=== PATIENT | female | born 1995 | race Caucasian/White ===

== ENCOUNTER 2018-02-14 09:36 | Inpatient (IN) ==
[2018-02-14] MEDS ORDERED: Sodium Chloride 0.9% 1,000 ML PRIMARY IV ONE (09:48)
[2018-02-14 10:49] LABS: Hematocrit [HCT] 43.5 % (37.0-47.0); Hemoglobin [HGB] 15.2 g/dL (12.0-16.0); MEAN CORPUSCULAR HEMOGLOBIN 29.9 PG (27-31); MEAN CORPUSCULAR HGB CONC 34.9 g/dL (33-37); MEAN CORPUSCULAR VOLUME 85.6 FL (81-99); MEAN PLATELET VOLUME 11.3 FL (7.4-12.2); RED BLOOD COUNT 5.08 10^6/uL (4.20-5.40)
[2018-02-14 11:05] LABS: BILIRUBIN,URINE NEGATIVE (NEG); CLARITY,URINE CLEAR (CLEAR); COLOR,URINE YELLOW (Y); GLUCOSE, URINE (UA) NEGATIVE (NEG); OCCULT BLOOD,URINE NEGATIVE (NEG); PROTEIN,URINE 30 mg/dl (NEG); UROBILINOGEN,URINE 0.2 EU/dL (0.2)
[2018-02-14 11:21] LABS: BACTERIA,URINE RARE; SQUAMOUS EPITHELIAL CELL,UR MODERATE; URINE SAMPLE TYPE CATH SPECIMEN
[2018-02-14 11:36] LABS: BLOOD UREA NITROGEN 8 mg/dL (7-22); BUN/CREATININE RATIO 13.33 (6-20); SERUM ALBUMIN 3.8 g/dL (3.5-4.8); Uric Acid 5.6 mg/dl (2.5-6.2)
[2018-02-14] MEDS ORDERED: CALCIUM CARBONATE 500 MG (TUMS) CHEWABLE TABLET PO PRN (11:51)
[2018-02-14] MEDS ORDERED: ACETAMINOPHEN 325 MG TABLET PO PRN (11:51)
[2018-02-14] MEDS ORDERED: Ondansetron ODT Tab 4 MG TAB PO PRN (11:51)
[2018-02-14] MEDS ORDERED: ONDANSETRON 4 MG/2 ML VIAL IVP PRN (11:51)
[2018-02-14] MEDS ORDERED: LIDOCAINE W/ SODIUM BICARB 0.5 ML SYR SUBD PRN ×2 (11:51→21:43)
[2018-02-14] MEDS ORDERED: BETAMET ACET/BETAMET NA PH 6 MG/1 ML - 5 ML IM SCH (12:00)
[2018-02-14] MEDS ORDERED: Lactated Ringers 1,000 ML PRIMARY IV SCH ×2 (15:00→21:45)
--- NOTE | 2018-02-14 15:55 | DI ---
US OB , Limited,02/14/2018 11:51 AM: Clinical History: Nonreassuring nonstress test. Previous Exam: November 24, 2017 Findings: Multiple grayscale and color Doppler sonographic images are obtained through the pelvis, and demonstr ates a single live intrauterine gestation in vertex presentation. The cervix is long and closed measu ring 5.9 cm in length. Detected Doppler heart tones measured 147 beats per minute. There is normal diaphragmatic motion iden tified. There was flexion seen with gross movement without extension identified. There is normal tone. Amniotic fluid index measured 8.7 cm however, there was a pocket of fluid within the left upper quadr ant measuring 2 x 2 centimeters. Impression: Biophysical profile measuring 7/8 due to limited gross movement.
[2018-02-14] MEDS ORDERED: Magnesium Sulfate 4gm (Premix) 4 GM/100 ML BAG IV ONE (17:47)
[2018-02-14] MEDS ORDERED: CALCIUM GLUCONATE 100 MG/1 ML - 10 ML IVP PRN (17:47)
--- NOTE | 2018-02-14 17:53 | DI ---
US OB , Limited,02/14/2018 3:40 PM: Clinical History: None strip Previous Exam: None at this facility. Findings: Multiple grayscale and color Doppler sonographic images are obtained through the pelvis and demonstra te a single live intrauterine gestation in vertex presentation. Amniotic fluid level is low measuring 7.7 cm. Detected Doppler heart tones measure 150 beats per minute. Evaluation of cord Dopplers reveals some mild reversal of end-diastolic flow. Estimated gestational age was determined by a composite of biparietal diameter, head circumference, a bdominal circumference and femur length yielding an estimated gestational age by ultrasound of 30 wee ks 5 days. This measures one week 5 days behind gestational age by last menstrual period. Estimated weight measured 1494 g (the 2nd percentile) Abdominal circumference measured less than the 2nd percentile. Femur length was at the 3rd percentile and head circumference was at the 4th percentile. Impression: 1. End diastolic reversal of flow on the cord Dopplers. 2. Estimated gestational age falls 12 days behind estimated gestational age by last menstrual period.
[2018-02-14] MEDS ORDERED: Magnesium Sulfate (Premix) 20 GM/500 ML BAG IV SCH (18:00)
--- NOTE | 2018-02-14 18:05 | OB.PROGRES ---
Date of Service: 02/14/18 Time of Service: 17:15 Interval History: Rema is a 22 yo at 32 3/7 weeks by first trimester u/s (9 2/7 weeks) who presented to labor and delivery this morning after calling my office and c/o cramping and low back pain as well as rib pain/pain across her upper abdomen. She denies any spotting, vag bleeding or gushes of fluid. No abnormal vaginal discharge. Baby has been moving around normally. Her has been uncomplicated thus far. Her initial labs were unremarkable. She is Rh negative and received her rhogam at 28 weeks. Her 20 week u/s showed baby to be measuring at the 45th percentile with an PAWEL that was subjectively normal per the radiologist's read. After the pt arrived to labor and delivery, she was noted to be hypertensive with blood pressures in the 150-160s/80s to low 90s diastolic. She had no BOYER, vision changes, or increased swelling. NST showed minimal to moderate variability with rare variables. FFN was negative. Vaginosis panel was + for angelica. U/s showed PAWEL of 8.7, vertex presentation. Pt was observed. Because of the continued intermittent variables, BPP was done, which was 6/8, off for gross movements. EFW was completed this afternoon, which showed baby to be in the 2nd percentile. There was noted to be a reverse in end diastolic flow. Because of these findings, I called and spoke with Dr. Hue Wadsworth in [place] at [facility]. She recommended transfer to [place] for further care. Objective - Cervical Exam Cervical Exam: not checked, but cervix was noted to be thick on u/s earlier. [place]: none noted Heart Rate: 150-155, occasional variable decelerations. Minimal to moderate variability. - Labs CBC and BMP: 02/14/18 10:46 02/14/18 10:46 - Vital Signs Last Taken Vital Signs: Vital Signs - Last Taken Temperature 97.7 F 02/14/18 09:45 Pulse Rate 75 02/14/18 15:00 Respiratory Rate 18 02/14/18 09:45 Blood Pressure 143/82 02/14/18 11:38 Pulse Ox 100 02/14/18 09:45 Assessment and Plan - Patient Problems (1) Elevated blood pressure affecting in third trimester, antepartum Current Visit: Yes Status: Acute Code(s): O16.3 - Unspecified maternal hypertension, third trimester (2) IUGR (intrauterine growth restriction) Current Visit: Yes Status: Acute - Assessment / Plan Additional Assessment/Plan Details: -reverse end diastolic flow noted on u/s. -discussed with Dr. Wadsworth at [facility] in [place]. Will start mag sulfate now ( bolus of 4 gm and then 2 gms/hour). Pt received her first dose of betamethasone at 1442. -GBS pending. -discussed with pt and her family in detail. was out in the field and was contacted and is headed here. Questions were answered--pt is quite emotional at this time.
[2018-02-14] MEDS ORDERED: CLOTRIMAZOLE 21 GM 3-DAY VAG CREAM VAGINAL SCH (21:00)
[2018-02-14] MEDS ORDERED: LIDOCAINE W/ SODIUM BICARB 0.5 ML SYR ONE (21:25)
[2018-02-14] MEDS ORDERED: Sodium Chloride 0.9% vial 10 ML ONE (21:25)
[2018-02-14] MEDS ORDERED: BUPIVACAINE SPINAL 7.5 MG/1 ML - 2 ML IV ONE (21:25)
[2018-02-14] MEDS ORDERED: ePHEDrine Inj 50 MG/ML AMP ONE (21:25)
[2018-02-14] MEDS ORDERED: OXYTOCIN 10 UNIT/1 ML ONE (21:40)
[2018-02-14] MEDS ORDERED: FAMOTIDINE 20 MG/2 ML VIAL IVP ONE (21:43)
[2018-02-14] MEDS ORDERED: LIDOCAINE HCL 2 % 10 ML JELLY URO-JECT TOPICAL PRN (21:43)
[2018-02-14] MEDS ORDERED: CITRIC ACID/SODIUM CITRATE 30 ML CUP PO ONE (21:43)
[2018-02-14] MEDS ORDERED: Clindamycin 900mg (Premix) 900 MG/50 ML BAG IV ONE (21:43)
[2018-02-14] MEDS ORDERED: Lactated Ringers 1,000 ML PRIMARY IV ONE (21:43)
[2018-02-14] MEDS ORDERED: Metoclopramide Inj 10 MG/2 ML VIAL IV ONE (21:43)
[2018-02-14] MEDS ORDERED: Oxytocin 20 Units + LR 20 UNIT/1,000 ML BAG IV SCH (21:45)
[2018-02-14 21:54] LABS: Hematocrit [HCT] 42.4 % (37.0-47.0); Hemoglobin [HGB] 15.1 g/dL (12.0-16.0); MEAN CORPUSCULAR HEMOGLOBIN 29.9 PG (27-31); MEAN CORPUSCULAR HGB CONC 35.6 g/dL (33-37); MEAN PLATELET VOLUME 11.6 FL (7.4-12.2); RED BLOOD COUNT 5.05 10^6/uL (4.20-5.40)
[2018-02-14 22:12] LABS: BLOOD UREA NITROGEN 8 mg/dL (7-22); SERUM ALBUMIN 3.6 g/dL (3.5-4.8); Uric Acid 6.1 mg/dl (2.5-6.2)
[2018-02-14] MEDS ORDERED: MISOPROSTOL 200 MCG TABLET ONE (22:26)
--- NOTE | 2018-02-14 23:11 | OB.PROGRES ---
Date of Service: 02/14/18 Time of Service: 22:30 Interval History: Pt has remained stable. She is not complaining of a BOYER, vision changes or RUQ pain. No vaginal bleeding or leakage of fluid. Of note, the high value associate team arrived and evaluated the pt. The pt did have one variable deceleration and one late deceleration. Pictures of the script were sent to Dr. Singh in [place]. We discussed the strip and the pt and Dr. Singh was anxious about putting the pt in an airplane with no monitoring x 2 hours. The decision was made to take the high value associate team back to [place] and bring the NICU team back with delivery here at [facility]. This was discussed with the pt and her spouse and they agreed to this plan. I spoke with Dr. Benigno Merritt who has accepted the baby in transfer after he/she has delivered. Objective - Cervical Exam Cervical Exam: no check/cervix was thick on u/s earlier this morning. Foley: brodie every 8-9 minutes, pt is not feeling these contractions. Heart Rate: reactive NST currently, no decels noted on the current 20 minutes of strip. Pt has had some intermittent, but not repetitive variable and late decelerations. Heart Rate Interpretation Category: Category I - Labs CBC and BMP: 02/14/18 21:44 02/14/18 21:44 - Vital Signs Last Taken Vital Signs: Vital Signs - Last Taken Temperature 98.4 F 02/14/18 21:00 Pulse Rate 88 02/14/18 22:04 Respiratory Rate 16 02/14/18 22:04 Blood Pressure 150/86 02/14/18 22:04 Pulse Ox 100 02/14/18 22:04 Assessment and Plan - Patient Problems (1) Elevated blood pressure affecting in third trimester, antepartum Current Visit: Yes Status: Acute Code(s): O16.3 - Unspecified maternal hypertension, third trimester (2) IUGR (intrauterine growth restriction) Current Visit: Yes Status: Acute - Assessment / Plan Additional Assessment/Plan Details: -art objects salesperson team has gone back to [place] and will trade out for the NICU team. -if baby remains stable, we will wait for the NICU team to arrive and assume care of the baby upon delivery. -pt has been updated on the plan and is in agreement. She would really like to go on the plane with the baby, but understands that this may not be a good idea since she will be on magnesium and will be immediate post-op.
[2018-02-15] MEDS ORDERED: Lactated Ringers 1,000 ML PRIMARY IV ONE (00:31)
[2018-02-15] MEDS ORDERED: OXYTOCIN 10 UNIT/1 ML ONE (01:20)
[2018-02-15] MEDS ORDERED: KETOROLAC 30 MG/1 ML VIAL ONE (02:10)
--- NOTE | 2018-02-15 02:16 | OB.OP.NOTE ---
Operative Report - - Surgeon: Brenda Sanz MD Metal Buffer: Mickey Christensen MD Anesthesia Type: Regional Anesthesia Provider: Katherine Carter CRNA Surgery Date: 02/15/18 Preoperative Diagnosis: 1. Baby with u/s findings that show reversal of end- diastolic flow. 2. Pre-eclampsia with severe features based on systolic blood pressure greater than 160. 3. Intrauterine growth restriction Postoperative Diagnosis: same, delivered Procedure: Primary low transverse section Complications: none Estimated Blood Loss (mL): 600 Urine Output (mL): 250 Fluids: 1200 cc LR; 40 mU of pitocin Indications: Pt is a 22 yo at 32 3/7 weeks who presented to labor and delivery this morning with cramping and right sided rib pain. Her symptoms had started at 0300 on 02/14. She was evaluated. Her systolic blood pressures were noted to be elevated to > 160. Gestational hypertension panel showed hgb of 15.2, platelets 140,000, creatinine 0.6, AST and ALT mildly elevated to 84 and 58. Normal LDH. She was admitted, given betamethasone and a 24 hour urine for protein was started. Because of a non-reactive NST, a BPP was obtained, which was 6/8. EFW was in the 2nd percentile. PAWEL was 8.7. Cord dopplers showed reversed end diastolic flow. Consultation was made with the MFM in [place] at [facility], Dr. Wadsworth. A high school business teacher team was mobilized and reported to our labor and delivery unit. Upon arrival to our unit, the transport team evaluated the pt and the most recent heart tracing and, along with Dr. Singh, decided that the best course of action would be to send the high pressure kettle operator team back to [place] and bring the NICU team here for delivery to allow continuous monitoring ( on the fixed wing flight, there would be 2 hours where the pt would not be monitored with regards to status). Because of the reverse end diastolic flow seen on the cord dopplers, and the intermittent late and variable decelerations, Dr. Wadsworth recommended that the baby be delivered by section because he/she would not tolerate labor and likely decompensate quickly. Findings: female , in vertex presentation, clear amniotic fluid. Nuchal cord x 1. Description of Procedure: The patient was taken to the operating room where spinal anesthesia was found to be adequate. She was then prepared and draped in the normal sterile fashion in the dorsal supine position with a leftward tilt. A Pfannenstiel skin incision was then made with the scalpel and carried through to the underlying layer of fascia with the Bovie. The fascia was incised in the midline and the incision extended laterally with the Bovie. The superior aspect of the fascial incision was then grasped with the Divya clamps, elevated, and the underlying rectus muscles dissected off bluntly. Attention was then turned to the inferior aspect of this incision which, in a similar fashion, was grasped with the Divya clamps and the rectus muscles dissected off both bluntly and with the Bovie. The rectus muscles were then in the midline, and the peritoneum identified and entered digitally. The peritoneal incision was then extended superiorly and inferiorly with good visualization of the bladder. The Deniz retractor was then inserted and the vesicouterine peritoneum identified. The lower uterine segment was incised in a transverse fashion with the scalpel. The uterine incision was then extended laterally in a blunt fashion. The infant' s head was delivered atraumatically. The nose and mouth were suctioned with the bulb suction and the cord clamped and cut after 45 seconds for delayed cord clamping. The was handed off to the awaiting NICU HEATING AND COOLING SYSTEMS ENGINEER and nurse. Cord gases and cord blood were sent for analysis. The placenta was then removed manually; the uterus exteriorized, and cleared of all clots and debris. The uterine incision was repaired with 0 Vicryl in a running, locked fashion. A second layer of the same suture was used to obtain excellent hemostasis. The serosal edge of hte incision was oozing and thus closed with a running 3-0 vicryl suture. The peritoneal cavity was then copiously irrigated with warm saline. The uterus was returned to the abdomen. The paracolic gutters were copiously irrigated with warm saline and a second look at the uterine incision continued to reveal excellent hemostasis. The peritoneum was closed with 3-0 Vicryl. The fascia reapproximated with 0 Vicryl in a running fashion. The subcutaneous space was irrigated copiously with warm saline and then closed first with 3-0 Vicryl Rapide and then more superficially with Insorb absorbable sutures. The skin was reapproximated with Steri-Strips and a Silverlon dressing applied. Fundal massage was completed with no clots in vaginal vault. The patient tolerated the procedure well. Sponge, lap, and needle counts were correct x2. Mefoxin was given preoperatively less than one hour prior to incision time. The patient was taken to the recovery room in stable condition. Patient Problems - Patient Problem List (1) Elevated blood pressure affecting in third trimester, antepartum Current Visit: Yes Status: Acute Code(s): O16.3 - Unspecified maternal hypertension, third trimester Category: Medical (2) IUGR (intrauterine growth restriction) Current Visit: Yes Status: Acute Category: Medical
--- NOTE | 2018-02-15 02:20 | CRNA.PROGR ---
Anesthesia Time - - Start date: 02/15/18 - Procedure/Recovery Time Anesthesia : Time In: 00:14 Anesthesia : Time Out: 02:03 - Other Weight: 99.246 kg Height: 5 ft 5 in Body Mass Index (BMI): 36.3 Physical Status: P2 Anesthesia Type: Spinal Block Obstetrics: C/S anesthesia only
--- NOTE | 2018-02-15 02:21 | CRNA.PROCE ---
Central Neuraxis Block Placemt - - Safety Measures: Time Out Taken, Site Verified - - Type of Block: Subarachnoid Reason for Block: Surgical Moniters Used During Block: EKG, SPO2, NIBP Positioning: Sitting Skin Prep Used: ChloroPrep Draped: Yes Skin Infiltration - Enter Amount Used in Comment Field: 1% Xylocaine with Bicarb (mL): Yes (.5) Spinal Needle Used: 22 Seferino 80 mm Local Anesthetic - Enter Amount Used in Comment Field: 0.75 % Bupivacaine with Dextrose (ml): Yes Bioclusive Dressing Applied: No Anesthesia Time - Other Weight: 99.246 kg Height: 5 ft 5 in Body Mass Index (BMI): 36.3
[2018-02-15] MEDS ORDERED: FAMOTIDINE 20 MG/2 ML VIAL IVP PRN (02:44)
[2018-02-15] MEDS ORDERED: ONDANSETRON 4 MG/2 ML VIAL IVP PRN (02:44)
[2018-02-15] MEDS ORDERED: Oxytocin 20 Units + LR 20 UNIT/1,000 ML BAG IV SCH (02:44)
[2018-02-15] MEDS ORDERED: diphenhydrAMINE 25 MG CAPSULE PO PRN (02:44)
[2018-02-15] MEDS ORDERED: HYDROmorphone 2 MG/1 ML IV PRN (02:44)
[2018-02-15] MEDS ORDERED: Naloxone Inj 0.01 MG, Sodium Chloride 0.9% vial 1 ML IVP PRN ×2 (02:44)
[2018-02-15] MEDS ORDERED: BUTORPHANOL TARTRATE 2 MG/1 ML VIAL IVP PRN (02:44)
[2018-02-15] MEDS ORDERED: CALCIUM CARBONATE 500 MG (TUMS) CHEWABLE TABLET PO PRN (02:44)
[2018-02-15] MEDS ORDERED: Nalbuphine Inj 20 MG/ML Ampule IVP PRN (02:44)
[2018-02-15] MEDS ORDERED: DIPH,PERTUSS,TET(ADACEL) VAC/PF 0.5 ML (Tdap) IM ONE (02:44)
[2018-02-15] MEDS ORDERED: diphenhydrAMINE 50 MG/1 ML VIAL IV PRN (02:44)
[2018-02-15] MEDS ORDERED: MISOPROSTOL 200 MCG TABLET RECTAL ONE (02:44)
[2018-02-15] MEDS ORDERED: LANOLIN HPA 40 GM TUBE TOPICAL PRN (02:44)
[2018-02-15] MEDS: oxyCODONE-ACETAMINOPHEN 5-325 TAB PO PRN ×6 (03:21→21:33)
[2018-02-15] MEDS: Magnesium Sulfate (Premix) 20 GM/500 ML BAG IV SCH ×2 (05:35→15:08)
[2018-02-15] MEDS: D5-LR 1,000 ML PRIMARY IV SCH ×2 (07:14→10:00)
[2018-02-15] MEDS: KETOROLAC 15 MG/1 ML VIAL IVP SCH ×4 (07:16→21:32)
[2018-02-15] MEDS ORDERED: Prenatal Multivitamin Tab 1 TAB TAB PO SCH (09:00)
[2018-02-15 09:40] LABS: Hematocrit [HCT] 36.3 % (37.0-47.0); Hemoglobin [HGB] 12.8 g/dL (12.0-16.0); MEAN CORPUSCULAR HGB CONC 35.3 g/dL (33-37); MEAN CORPUSCULAR VOLUME 85.2 FL (81-99); MEAN PLATELET VOLUME 10.3 FL (7.4-12.2); RED BLOOD COUNT 4.26 10^6/uL (4.20-5.40)
[2018-02-15 09:48] LABS: BLOOD UREA NITROGEN 8 mg/dL (7-22); SERUM ALBUMIN 2.8 g/dL (3.5-4.8); Uric Acid 5.1 mg/dl (2.5-6.2)
--- NOTE | 2018-02-15 10:13 | CRNA.PROGR ---
Anesthesia Note - Progress Notes Anesthesia Progress Note: Post OP Anesthesia Note Pt is sitting up in bed eating breakfast, she has not been up to ambulate but is planning to this morning, She states that her pain is tolerable and she denies any residual problems from the SAB. current VS are stable. Vital Signs - Last Taken Temperature 98.3 F 02/15/18 08:08 Pulse Rate 86 02/15/18 08:08 Respiratory Rate 16 02/15/18 08:08 Blood Pressure 117/76 02/15/18 08:08 Pulse Ox 95 02/15/18 08:08
[2018-02-15 15:10] LABS: BLOOD UREA NITROGEN 8 mg/dL (7-22); BUN/CREATININE RATIO 13.33 (6-20)
[2018-02-15] MEDS: Prenatal Multivitamin Tab 1 TAB TAB PO SCH (17:10)
[2018-02-15] MEDS ORDERED: CLOTRIMAZOLE 21 GM 3-DAY VAG CREAM VAGINAL SCH (21:00)
--- NOTE | 2018-02-15 22:35 | OB.PROGRES ---
Subjective Post Day: 0 Pain Management: PO Prince Catheter: No Flatus: Yes Lochia Color: Rubra/Red Scant < 10 ml Diet: Regular Feeding Method: Exculsively Ambulating: Yes Concerns / Additional Information: Feeling ok, just very tired. Pumping every 2-3 hours as baby was transferred to NICU in [place] shortly after delivery last noc. Denies BOYER, RUQ pain. Does have some 'fuzzy' vision, but this started after she was put on mag sulfate last noc. She remains on magnesium until 004 tomorrow morning. Mild lochia. Pain is well controlled with percocet and toradol. Has voided several times since her prince was discontinued today. Objective - General General Appearance: POSITIVE: No Acute Distress, Cooperative - Cardiovacular Cardiovascular Exam: POSITIVE: RRR, No Murmur Edema: +1 Pedal Edema Extremities: Negative Alexis's - Bilaterally - Respiratory Respiratory Exam: POSITIVE: Clear to Auscultation - Bilaterally, Breathing Non Labored - Abdomen Bowel Sounds: Present Abdominal Wound Assessment: Silverlone Dressing Assesstment / Plan (1) Elevated blood pressure affecting in third trimester, antepartum Current Visit: Yes Status: Acute (2) IUGR (intrauterine growth restriction) Current Visit: Yes Status: Acute Assessment / Plan: -routine post-operative cares. -continue mag sulfate for total of 24 hours after delivery. -continue pumping to encourage . -recheck labs tomorrow--was hyponatremic this morning and has been on fluid restrictions today. Currently asymptomatic. -rh negative, will get baby's blood type from NICU tomorrow am to determine if pt needs rhogam or not. -rubella immune. -possible d/c home at some point tomorrow.
[2018-02-16] MEDS ORDERED: diphenhydrAMINE 25 MG CAPSULE PO ONE
[2018-02-16] MEDS: oxyCODONE-ACETAMINOPHEN 5-325 TAB PO PRN ×2 (01:00→05:53)
[2018-02-16] MEDS ORDERED: IBUPROFEN 800 MG TABLET PO PRN (02:03)
[2018-02-16 02:14] VITALS: RESP 18
[2018-02-16] MEDS: KETOROLAC 15 MG/1 ML VIAL IVP SCH (02:47)
[2018-02-16 05:58] VITALS: TEMP 98.5
[2018-02-16 06:41] LABS: Hematocrit [HCT] 37.3 % (37.0-47.0); Hemoglobin [HGB] 12.6 g/dL (12.0-16.0); MEAN CORPUSCULAR HEMOGLOBIN 29.7 PG (27-31); MEAN CORPUSCULAR HGB CONC 33.8 g/dL (33-37); MEAN PLATELET VOLUME 11.3 FL (7.4-12.2); RED BLOOD COUNT 4.24 10^6/uL (4.20-5.40)
[2018-02-16 07:14] LABS: BLOOD UREA NITROGEN 11 mg/dL (7-22); BUN/CREATININE RATIO 18.33 (6-20); SERUM ALBUMIN 3.1 g/dL (3.5-4.8); Uric Acid 6.3 mg/dl (2.5-6.2)
[2018-02-16] MEDS: Prenatal Multivitamin Tab 1 TAB TAB PO SCH (08:05)
[2018-02-16] MEDS ORDERED: Prenatal Multivitamin Tab 1 TAB TAB PO SCH (09:00)
[2018-02-16] MEDS ORDERED: Senna/Docusate Tab 1 TAB TAB PO SCH (09:00)
[2018-02-16] MEDS ORDERED: RHO(D) IMMUNE GLOBULIN 1500 UNIT(300 mcg)SYRIN IM PRN (09:20)
[2018-02-16 09:34] VITALS: BP 129/80; O2SAT 97
--- NOTE | 2018-03-05 22:29 | OB.DEL.SUM ---
Delivery Note - Patient Problems (1) Elevated blood pressure affecting in third trimester, antepartum Status: Acute Code(s): O16.3 - Unspecified maternal hypertension, third trimester (2) IUGR (intrauterine growth restriction) Status: Acute
--- NOTE | 2018-03-05 22:30 | DCSUMMARY ---
Hospitalization Summary Admit Date: 02/14/18 Discharge Date: 02/16/18 Primary Diagnosis:: IUP, 32 weeks Secondary Diagnosis:: Reversed end diastolic flow on cord dopplers IUGR Primary Surgery and Date: Primary on 02/15 for reversed end diastolic flow on cord dopplers, with IUGR noted. Delivery Type: Hospital Course: Pt presented to labor and delivery for some mild cramping. She had a negative FFN. heart tracing showed periods of minimal variability. An u/s was done and showed BPP of 6/8. PAWEL was 8. Cord dopplers showed reversal of end diastolic flow. Consultation was obtained with MFM in [place], who recommended transfer. After the maternal transport team arrived, the attending MFM decided that it would be safer to deliver the baby at our facility and transport the baby back to the NICU in [place]. After the transport team arrived, the pt was taken for an uneventful section. For details of this operation, please see the operative report elsewhere in the chart. / Postop Complications: None noted. [place] Complications: Baby was , but was vigorous and crying after delivery. The NICU team was in attendance for delivery. She was placed on CPAP, but just at room air. An IV was established. She was transferred to the NICU in [place] about 1 hour after delivery. Exam - Vitals Vital Signs: Vital Signs Temperature 98.5 F Temperature Source Oral Pulse Rate [Pulse Oximeter] 82 Pulse Rate 105 Respiratory Rate 18 Blood Pressure [Right Arm] 129/80 Blood Pressure 136/83 Pulse Ox 97 Oxygen Flow Rate RA Oxygen Delivery Method Room Air Height 5 ft 5 in Weight 218 lb 12.8 oz - General General Appearance: No Acute Distress, Cooperative - Head Head Exam: Normal Inspection - Respiratory Respiratory Exam: POSITIVE: Clear to Auscultation - Bilaterally, Breathing Non Labored - Cardiovascular Cardiovascular Exam: POSITIVE: RRR, No Murmur, No Clicks - GI/Abdominal GI/Abdominal Exam: POSITIVE: Normal Bowel Sounds, Non Tender, Non Distended, Soft - Extremities Extremities Exam: POSITIVE: Normal Inspection, Full ROM, Normal Capillary Refill - Back Back Exam: POSITIVE: Normal Inspection - Neurological Neurological Exam: POSITIVE: Alert, Oriented x 3 - Psychiatric Psychiatric Exam: POSITIVE: Normal Affect - Integumentary Integumentary Exam: POSITIVE: Normal Color, Warm, Dry Patient Problems - Patient Problem List (1) Elevated blood pressure affecting in third trimester, antepartum Status: Acute Code(s): O16.3 - Unspecified maternal hypertension, third trimester Category: Medical (2) IUGR (intrauterine growth restriction) Status: Acute Category: Medical
== END 2018-02-16 11:57 | disposition home or self-care (01) | DRG 765 ==
LOC: OBIP 09:36 → OBOP 09:36 → OBIP 02-15 02:48
PROVIDERS: ADMIT Family Medicine; ATTEND Family Medicine